=== PATIENT | male | born 1960 | race Caucasian/White ===

== ENCOUNTER 2019-06-10 08:10 | Inpatient (IN) ==
--- OUTSIDE RECORDS SUMMARY | 2019-06-10 08:13 | External Medical Summary | Continuity of Care Document ---
:1960 Author Name Erasmo Leos, Provider Address Unavailable Unavailable , Care Team Providers Name Role Phone Peterson Leos, Chung Aguilar Unavailable [email or web address] Active medical history not documented Allergies and Adverse Reactions Allergy history not documented Medications Medications not documented Procedures Procedures not documented Immunizations Immunizations not documented Plan of Treatment Planned Observations Planned Goals not documented Results No Known Results Results not documented Encounters Appointment; Chung Winkler M.D. 27-Aug-2009 9:20 Encounter Diagnosis: Problem not documented
[2019-06-10 08:57] LABS: Basophils # (auto) 0.03 K/uL (0-0.2); Basophils % (auto) 0.2 %; Eosinophils # (auto) 0.07 K/uL (0-0.5); Eosinophils % (auto) 0.5 %; Hematocrit (blood only) 52.9 % (42-52); Immature Granulocytes % (auto) 0.7 %; Lymphocytes # (auto) 1.59 K/uL (1.2-3.4); Lymphocytes % (auto) 10.5 %; Mean Corpuscular Hemoglobin 34.9 pg (25-34); Mean Corpuscular Hgb Conc 35.9 g/dL (32-36); Mean Corpuscular Volume 97.2 fL (80-100); Mean Platelet Volume 10.2 fL (7.4-10.4); Monocytes # (auto) 1.13 K/uL (0.11-0.59); Monocytes % (auto) 7.5 %; Neutrophils # (auto) 12.16 K/uL (1.4-6.5); Neutrophils % (auto) 80.6 %; Platelet Count 217 K/uL (130-400); RDW Coefficient of Variation 13.2 % (11.5-14.5); RDW Standard Deviation 47.3 fL (36.4-46.3); Red Blood Count 5.44 M/uL (4.7-6.1); White Blood Count 15.08 K/uL (4.8-10.8)
[2019-06-10] MEDS ORDERED: SODIUM CHLORIDE 0.9% 1000ML 1,000 ML IV SCH (09:00)
[2019-06-10 09:04] LABS: Albumin Level 3.5 gm/dl (3.4-5.0); BUN Creatinine Ratio 7.8 (10-20); Calcium 9.4 mg/dl (8.5-10.1); Creatinine Clr Calc Pharmacy 69.4 ml/min; Est GFR (Non-African American) 70.7; Potassium 4.4 mmol/L (3.5-5.1)
[2019-06-10 09:09] LABS: Albumin Globulin Ratio 0.7 (0.9-2); Bilirubin,Total 0.9 mg/dl (0.2-1); Globulin 4.7 gm/dl (2.5-4.0); Total Protein 8.2 gm/dl (6.4-8.2)
[2019-06-10 09:20] LABS: Appearance Urine Clear (Clear); Bacteria Urine Automated Negative (Negative); Blood Urine 2+ (Negative); Color Urine Orange; Glucose Urine UA Negative (Negative); Ketones Urine 1+ (Negative); Leukocyte Esterase Urine 1+ (Negative); Nitrite Urine Positive (Negative); Protein Urine 1+ (Negative); Specific Gravity Urine 1.027 (1.000-1.030); Urobilinogen Urine Negative (Negative)
--- NOTE | 2019-06-10 09:21 | Emergency Department Note ---
History of Present Illness General Chief complaint: Abdominal Pain Stated complaint: STOMACHPAIN & BACK PAIN Time Seen by Provider: 06/10/19 08:17 History of Present Illness Maximum Pain Intensity: 9 This 58-year-old male presents to the ER with chief complaint of left lower quadrant pain for the past 6 days. The patient states that it feels like he has to move his bowels but sometimes when he sits down to move his bowels there is no bowel movement sometimes there is only a small bowel movement. He states the pain is dull and achy and intermittently goes to a stabbing pain at a 9 out of 10. The patient admits to one episode of nausea and vomiting. Patient denies any fever. The patient tried MiraLAX without any relief of the pain. The patient denies any urinary symptoms of frequency, urgency, dysuria or hematuria. The patient does admit to urinary hesitancy but that has been going on for 1 year. The patient states that he had a colonoscopy approximately 10 years ago w hich was normal. He does have a history of kidney stones but this does not feel similar. Home Medications Home Medications Medication Instructions Recorded Confirmed Type No Known Home Medications 06/10/19 06/10/19 History Allergies Allergy/AdvReac Type Severity Reaction Status Date / Time No Known Allergies Allergy Unverified 06/10/19 08:59 Past Med/Surg History Medical History Kidney stones No significant past surgical history Surgical History H/O hernia repair ~2008 H/O vasectomy ~2003 Family History Father CHF (congestive heart failure) Social History Preferred Language: Icelandic Communication Ability: Effective Visual Impairment: No Limitations Beliefs That Will Affect Care: None Current Living Situation: Significant Other Other Information That Helps Us Care for You: No Feels Safe at Home: Yes Safety Concerns: Feels Safe At This Time Smoking Status: Current every day smoker Tobacco Type: cigarettes ; Cigarettes Per Day: 10 ; Hx Alcohol Use: Yes Alcohol type: beer Hx Substance Use: No Review of Systems A total of 10 systems reviewed and were otherwise negative Physical Exam Vital Signs Vital Signs - 24 hr 06/10/19 08:13 06/10/19 08:55 06/10/19 09:32 Temperature 36.4 C L Temperature Source Oral Sepsis Recent Fever Within 48 Hours No Sepsis New/Unexplained Change in Mental Status No Sepsis Action Taken by Nursing No Action Required Pulse Rate 100 H Pulse Rate [Left Finger] 87 Respiratory Rate 18 18 Respiratory Effort / Characteristics Non-Labored Spontaneous Non-Labored Spontaneous Respiratory Depth Normal Normal Respiratory Pattern Regular Blood Pressure 147/81 H Blood Pressure [Left Arm] 130/86 Blood Pressure Mean 103 Blood Pressure Mean [Left Arm] 100 Blood Pressure Position Sitting Pulse Oximetry 98 96 96 Oxygen Delivery Method Room Air Room Air Room Air 06/10/19 11:25 Temperature Temperature Source Sepsis Recent Fever Within 48 Hours Sepsis New/Unexplained Change in Mental Status Sepsis Action Taken by Nursing Pulse Rate Pulse Rate [Left Finger] 81 Respiratory Rate 19 Respiratory Effort / Characteristics Respiratory Depth Respiratory Pattern Blood Pressure Blood Pressure [Left Arm] 127/77 Blood Pressure Mean Blood Pressure Mean [Left Arm] 93 Blood Pressure Position Pulse Oximetry 97 Oxygen Delivery Method Room Air GENERAL: 58-year-old male appears in no acute distress. He is sitting comfortably on the ER stretcher. MENTAL Status: Alert and oriented x3. MOUTH: Mucosa is moist NECK: Supple, no lymphadenopathy noted. No carotid bruits noted. LUNGS: Clear auscultation without wheezes rales or rhonchi. CARDIAC: Regular rate and rhythm without murmur. Pulses is full and equal thro ughout. BACK: No CVA tenderness noted. ABDOMEN: Positive bowel sounds all 4 quadrants. Soft, patient has tenderness to palpation in the right lower quadrant .remainder of abdomen is nontender to palp ation without organomegaly or masses. EXTREMITIES: No cyanosis or edema noted. Course Administered Medications Ioversol (Optiray 320 100ml) 95 ml IV ONCE PRN PRN Reason: Interaction Checking Stop: 06/14/19 11:11 Last Admin: 06/10/19 11:13 Dose: 95 ml Documented by: [id number] Discontinued Medications Acetaminophen (Tylenol) 80 mg PO NOW STA Stop: 06/10/19 11:17 Last Admin: 06/10/19 11:25 Dose: Not Given Documented by: [id number] Sodium Chloride (Nss 1000ml) 1,000 mls @ 999 mls/hr IV .Q1H1M ELISSA Stop: 06/10/19 10:00 Last Infusion: 06/10/19 10:12 Dose: 0 mls/hr Documented by: [id number] Admin: 06/10/19 08:59 Dose: 999 mls/hr Documented by: [id number] Medical Decision Making Differential Diagnosis Acute appendicitis, diverticulitis, small bowel obstruction, kidney stone Medical Records Attestation: I reviewed the patient's medical records. Home Medications Current Medication List: was personally reviewed by me Laboratory Data Attestation: I reviewed the patient's lab results. Result diagrams: 06/10/19 08:25 06/10/19 08:25 Lab Results 06/10/19 06/10/19 06/10/19 Range/Units 08:25 08:25 09:00 WBC 15.08 H (4.8-10.8) K/uL RBC 5.44 (4.7-6.1) M/uL Hgb 19.0 H (14.0-18.0) g/dL Hct 52.9 H (42-52) % MCV 97.2 (80-100) fL MCH 34.9 H (25-34) pg MCHC 35.9 (32-36) g/dL RDW Std Deviation 47.3 H (36.4-46.3) fL RDW Coeff of Miky 13.2 (11.5-14.5) % Plt Count 217 (130-400) K/uL MPV 10.2 (7.4-10.4) fL Immature Gran % (Auto) 0.7 % Neut % (Auto) 80.6 % Lymph % (Auto) 10.5 % [place] % (Auto) 7.5 % Eos % (Auto) 0.5 % Baso % (Auto) 0.2 % Immature Gran # (Auto) 0.10 H (0.00-0.02) K/uL Neut # (Auto) 12.16 H (1.4-6.5) K/uL Lymph # (Auto) 1.59 (1.2-3.4) K/uL [place] # (Auto) 1.13 H (0.11-0.59) K/uL Eos # (Auto) 0.07 (0-0.5) K/uL Baso # (Auto) 0.03 (0-0.2) K/uL Sodium 140 (136-145) mmol/L Potassium 4.4 (3.5-5.1) mmol/L Chloride 106 (98-107) mmol/L Carbon Dioxide 29 (21-32) mmol/L Anion Gap 5.0 (3-11) BUN 9 (7-18) mg/dl Creatinine 1.15 (0.6-1.4) mg/dl Est Cr Clr Drug Dosing 69.4 ml/min Est GFR ( Amer) 82.0 Est GFR (Non-Af Amer) 70.7 BUN/Creatinine Ratio 7.8 L (10-20) Glucose 113 H (70-99) mg/dl Calcium 9.4 (8.5-10.1) mg/dl Total Bilirubin 0.9 (0.2-1) mg/dl AST 12 L (15-37) U/L ALT 18 (12-78) U/L Alkaline Phosphatase 74 (45-117) U/L Total Protein 8.2 (6.4-8.2) gm/dl Albumin 3.5 (3.4-5.0) gm/dl Globulin 4.7 H (2.5-4.0) gm/dl Albumin/Globulin Ratio 0.7 L (0.9-2) Lipase 101 (73-393) U/L Urine Color [place] Urine Appearance Clear (Clear) Urine pH 5.0 (4.5-7.5) Ur Specific [place] 1.027 (1.000-1.030) Urine Protein 1+ H (Negative) Urine Glucose (UA) Negative (Negative) Urine Ketones 1+ H (Negative) Urine Blood 2+ H (Negative) Urine Nitrite Positive A (Negative) Urine Bilirubin Negative (Negative) Urine Urobilinogen Negative (Negative) Ur Leukocyte Esterase 1+ H (Negative) Urine WBC (Auto) 5-10 H (0-5) /hpf Urine RBC (Auto) 10-30 H (0-4) /hpf U Hyaline Cast (Auto) 5-10 H (0-5) /lpf U Epithel Cells (Auto) 5-10 H (0-5) /lpf Urine Bacteria (Auto) Negative (Negative) Imaging Data Attestation: I personally reviewed and interpreted this imaging study as follows: My Impression: Acute diverticulitis Radiologist's Impression: CT abd pelvis oral and IV con CLINICAL HISTORY: Left lower quadrant pain COMPARISON STUDY: August 2007 TECHNIQUE: The patient was scanned following administration of dilute oral contrast, and in a dynamic helical fashion during intravenous administration of 95 cc of Optiray 320 A dose lowering technique was utilized adhering to the principles of ALARA. CT DOSE: 328.03 mGy.cm FINDINGS: Lower chest: There are mild basilar atelectatic changes Liver: There is suspected hepatic steatosis. No focal masses are visualized. Gallbladder: Unremarkable. Spleen: The spleen is mildly enlarged measuring 12.7 cm Pancreas: Unremarkable. Adrenal glands: Unremarkable. Kidneys: There is symmetric renal cortical enhancement. The kidneys are normal in size without hydronephrosis. Bowel: There are no transition zones indicate bowel obstruction. The appendix appears normal. There is a thick-walled sigmoid colon with infiltration of the pericolonic fat. The findings are consistent with acute diverticulitis. There is a suspected 2.5 cm intramural abscess. Peritoneum: There is no intraperitoneal free air or abdominal ascites. Vasculature: The abdominal aorta is normal in course and caliber. Adenopathy: None. Pelvic viscera: The prostate is enlarged Skeletal structures: There is bilateral L5 spondylolysis. There is a grade 1 spondylolisthesis of L5 and S1 IMPRESSION: 1. Acute sigmoid diverticulitis. 2.5 cm intramural abscess. 2. No evidence of bowel obstruction. No evidence of free air 3. Normal appendix 4. Mild splenomegaly 5. Hepatic steatosis Electronically signed by: Luis Alberto John M.D. 06/10/2019 11:30 AM Dictated: 06/10/19 1126 Transcribed: 06/10/19 1126 Blood Pressure Blood Pressure Findings: Elevated blood pressure Blood Pressure Disposition: elevated BP felt to be situational MDM Narrative The patient was evaluated. IV access was obtained. The patient was given 1 L normal saline wide open. The pain patient was offered pain medication but declined. CBC differential, renal profile, LFTs and lipase levels were ordered. Urinalysis was ordered. T of the abdomen and pelvis with IV and oral contrast was ordered and interpreted by the radiologist and myself as above with acute sigmoid diverticulitis with a 2.5 cm abscess. Labs are reviewed. White count was elevated at 15,000 otherwise labs are unremarkable. The patient's urinalysis revealed positive blood positive nitrates and positive leukocytes but negative bacteria. The patient's case was discussed with Dr. Kaye who agrees with treatment plan. Dr. Valerio was consulted. He stated that the patient could be admitted through medicine that most likely the abscess would resolve with antibiotic treatment. He also recommend that I contact Evert Ortega PA-C to let him know about the patient. The hospitalist was consulted for admission and Evert Ortega was informed of the patient being admitted. Impression & Plan Diverticulitis, Acute UTI Discharge Plan Visit Data Chief Complaint: Abdominal Pain Stated Complaint: STOMACHPAIN & BACK PAIN ED Provider: Denny Kaye ED Midlevel Provider: Beryl Layne Discharge Problem: Diverticulitis, Acute UTI Patient Disposition: Being Evaluated by Hospitalist Condition: Good Discharge Instructions Interventions: ED Discharge Assessment Last Done: 06/10/19 13:51
[2019-06-10 09:23] LABS: Bilirubin Urine Negative (Negative); Ictotest Urine Negative (Negative)
[2019-06-10] MEDS ORDERED: IOVERSOL 100ml IV PRN (11:12)
[2019-06-10] MEDS ORDERED: ACETAMINOPHEN 80 MG CHEWABLE TAB PO STA (11:16)
--- NOTE | 2019-06-10 11:31 | CT Scan Report ---
CT abd pelvis oral and IV con CLINICAL HISTORY: Left lower quadrant pain COMPARISON STUDY: August 2007 TECHNIQUE: The patient was scanned following administration of dilute oral contrast, and in a dynamic helical fashion during intravenous administration of 95 cc of Optiray 320 A dose lowering technique was utilized adhering to the principles of ALARA. CT DOSE: 328.03 mGy.cm FINDINGS: Lower chest: There are mild basilar atelectatic changes Liver: There is suspected hepatic steatosis. No focal masses are visualized. Gallbladder: Unremarkable. Spleen: The spleen is mildly enlarged measuring 12.7 cm Pancreas: Unremarkable. Adrenal glands: Unremarkable. Kidneys: There is symmetric renal cortical enhancement. The kidneys are normal in size without hydron ephrosis. Bowel: There are no transition zones indicate bowel obstruction. The appendix appears normal. There i s a thick-walled sigmoid colon with infiltration of the pericolonic fat. The findings are consistent with acute diverticulitis. There is a suspected 2.5 cm intramural abscess. Peritoneum: There is no intraperitoneal free air or abdominal ascites. Vasculature: The abdominal aorta is normal in course and caliber. Adenopathy: None. Pelvic viscera: The prostate is enlarged Skeletal structures: There is bilateral L5 spondylolysis. There is a grade 1 spondylolisthesis of L5 and S1 IMPRESSION: 1. Acute sigmoid diverticulitis. 2.5 cm intramural abscess. 2. No evidence of bowel obstruction. No evidence of free air 3. Normal appendix 4. Mild splenomegaly 5. Hepatic steatosis Electronically signed by: Luis Alberto John M.D. 06/10/2019 11:30 AM
--- NOTE | 2019-06-10 13:10 | Surgery Consultation ---
Date of Consultation June 10, 2019 Assessment & Plan (1) Diverticulitis: Diverticulitis, 2 cm abscess. No peritoneal findings. Being admitted by medicine for IV antibiotics & hydration, would keep NPO for today. Will continue to follow, likely repeat colonoscopy as an outpatient and consider elective resection depending on his progress. Supervising Physician Co-Signing Physician Notes concur with plan of Jayleen Lyons discussed and evaluated pt Manolo Valerio MD History of Present Illness History of Present Illness 58 y/o male with 5-6 days LLQ pain, pressure. Has been having some normal BMs but also some mucus and or liquid BMs. No history of diverticulitis. Had negative colonoscopy 8-10 years ago for some rectal bleeding. Has been eating regular diet. Allergies Allergy/AdvReac Type Severity Reaction Status Date / Time No Known Allergies Allergy Unverified 06/10/19 08:59 Home Medications Home Medications Medication Instructions Recorded Confirmed Type No Known Home Medications 06/10/19 06/10/19 History Patient History Medical History Kidney stones No significant past surgical history Surgical History H/O hernia repair ~2008 H/O vasectomy ~2003 Family History Father CHF (congestive heart failure) Social History Preferred Language: Nigerian Communication Ability: Effective Visual Impairment: No Limitations Feels Safe at Home: Yes Smoking Status: Current every day smoker Review of Systems Constitutional: no fever and no chills Gastrointestinal: + abdominal pain, + nausea and + vomiting; no blood in stools Physical Exam Constitutional: WD/WN, vitals as above no acute distress Respiratory: normal respiratory effort; no respiratory distress Cardiovascular: Rate/Rhythm: regular rate and regular rhythm Gastrointestinal (Abdomen): Inspection/Auscultation: abdomen not distended Percussion/Palpation: + abdomen tender (mild LLQ) and abdomen soft Results & Data Vital Signs (Past 12 Hours) Vital Signs Temp Pulse Pulse Resp BP BP Pulse Ox 06/10/19 11:25 81 19 127/77 97 06/10/19 09:32 87 18 130/86 96 06/10/19 08:55 96 06/10/19 08:13 36.4 C L 100 H 18 147/[address] abd pelvis oral and IV con CLINICAL HISTORY: Left lower quadrant pain COMPARISON STUDY: August 2007 TECHNIQUE: The patient was scanned following administration of dilute oral contrast, and in a dynamic helical fashion during intravenous administration of 95 cc of Optiray 320 A dose lowering technique was utilized adhering to the principles of ALARA. CT DOSE: 328.03 mGy.cm FINDINGS: Lower chest: There are mild basilar atelectatic changes Liver: There is suspected hepatic steatosis. No focal masses are visualized. Gallbladder: Unremarkable. Spleen: The spleen is mildly enlarged measuring 12.7 cm Pancreas: Unremarkable. Adrenal glands: Unremarkable. Kidneys: There is symmetric renal cortical enhancement. The kidneys are normal in size without hydronephrosis. Bowel: There are no transition zones indicate bowel obstruction. The appendix appears normal. There is a thick-walled sigmoid colon with infiltration of the pericolonic fat. The findings are consistent with acute diverticulitis. There is a suspected 2.5 cm intramural abscess. Peritoneum: There is no intraperitoneal free air or abdominal ascites. Vasculature: The abdominal aorta is normal in course and caliber. Adenopathy: None. Pelvic viscera: The prostate is enlarged Skeletal structures: There is bilateral L5 spondylolysis. There is a grade 1 spondylolisthesis of L5 and S1 IMPRESSION: 1. Acute sigmoid diverticulitis. 2.5 cm intramural abscess. 2. No evidence of bowel obstruction. No evidence of free air 3. Normal appendix 4. Mild splenomegaly 5. Hepatic steatosis Electronically signed by: Luis Alberto John M.D. 06/10/2019 11:30 AM Dictated: 06/10/19 1126 Transcribed: 06/10/19 1126 PG Care Time/CCT Total # of Minutes Spent Total Time Spent with Patient: Total time spent is greater than 50% in coordination of care (as documented) at patient's floor/unit and/or counseling patient:
--- NOTE | 2019-06-10 13:32 | History & Physical Report ---
Date of Service June 10, 2019 Assessment & Plan (1) Diverticulitis: CT a/p on 06/10 showed acute sigmoid diverticulitis. 2.5 cm intramural abscess. Mildly elevated WBC. - Seen by general surgery in the ED - No current surgical need. - Zosyn - NPO -> Advance diet as tolerated - IV fluids (2) Polycythemia: Hgb was 19 on admission. Possibly due to dehydration from his diverticulitis vs. smoking. - Monitor (3) Tobacco use: Current smoker, but wants to quit. - Nicotine patch (4) DVT prophylaxis: SCDs - Low DVT risk per admission calculator History of Present Illness Primary Care Provider: Rufina Garza MD 58-year-old male with no segment past medical history who presents with acute diverticulitis with diverticular abscess. Patient reports he was in his normal state of health up until last Monday, when he noted some left lower quadrant pain. The pain has no radiation and waxes and wanes. It usually gets worse with eating. He describes the pain as a "having to have a bowel movement" pain; however, he reports he can only pass a bowel movement from time to time and trying. He denies any blood or melena in his stool and denies any diarrhea. His last bowel movement was this morning and was a normal brown. He denies any fevers or chills. He had one episode of emesis after drinking some coffee when the pain is very severe, but nothing presently. He had a colonoscopy with Dr. Carrillo of the [facility] approximately 10 years ago and recalls that it was a normal colonoscopy. Allergies Allergy/AdvReac Type Severity Reaction Status Date / Time No Known Allergies Allergy Unverified 06/10/19 08:59 Home Medications Home Medications Medication Instructions Recorded Confirmed Type No Known Home Medications 06/10/19 06/10/19 History Past Med/Surg History Medical History Kidney stones No significant past surgical history Surgical History H/O hernia repair ~2008 H/O vasectomy ~2003 Family History Father CHF (congestive heart failure) Social History Preferred Language: Persian Communication Ability: Effective Visual Impairment: No Limitations Feels Safe at Home: Yes Smoking Status: Current every day smoker Review of Systems Review of Systems: All systems reviewed & are unremarkable except as noted in HPI & below Physical Exam Constitutional: WD/WN, vitals as above Eyes: EOM intact bilaterally; no conjunctival abnormality ENMT: external ear and nose normal, oropharynx normal Neck: trachea midline, no thyromegaly normal visual inspection Respiratory: normal respiratory effort, lungs clear to auscultation no respiratory distress Cardiovascular: RRR, no murmur, no edema Gastrointestinal (Abdomen): Inspection/Auscultation: abdomen normal to inspection; abdomen not distended Percussion/Palpation: + abdomen tender (LLQ) and abdomen soft; no guarding and abdomen not rigid Musculoskeletal: no cyanosis or clubbing, extremities motor strength 5/5 Skin: no rashes, warm and dry Neurologic: moves all extremities and awake Psychiatric: Orientation: alert, oriented to person and cooperative Results & Data Vital Signs (Past 12 Hours) Vital Signs Temp Pulse Pulse Resp BP BP Pulse Ox 06/10/19 11:25 81 19 127/77 97 06/10/19 09:32 87 18 130/86 96 06/10/19 08:55 96 06/10/19 08:13 36.4 C L 100 H 18 147/81 H 98 PG Care Time/CCT Total # of Minutes Spent Total Time Spent with Patient: Total time spent is greater than 50% in coordination of care (as documented) at patient's floor/unit and/or counseling patient:
[2019-06-10] MEDS ORDERED: PIPERACILL/TAZOBAC CONSULT ACTIVE PRN (14:16)
[2019-06-10] MEDS ORDERED: ACETAMINOPHEN 325 MG TAB PO PRN (14:16)
[2019-06-10] MEDS ORDERED: MoRPHine SULFATE 4 MG/ML 1 ML CARP\\VIAL IV PRN (14:16)
[2019-06-10] MEDS ORDERED: ONDANSETRON INJ 2 MG/ML 2 ML VIAL IV PRN (14:16)
[2019-06-10] MEDS ORDERED: PIPERACILLIN/TAZOBACTAM 3.375 GM in DEXTROSE 5% 100 ML IV ONE (14:30)
[2019-06-10] MEDS: NICOTINE 21 MG/24 HR TDSY TD SCH (15:22)
[2019-06-10] MEDS: SODIUM CHLORIDE 0.9% 1000ML 1,000 ML IV SCH (15:23)
[2019-06-10] MEDS: PIPERACILLIN/TAZOBACTAM 3.375 GM in DEXTROSE 5% 100 ML IV SCH (20:17)
[2019-06-11] MEDS: SODIUM CHLORIDE 0.9% 1000ML 1,000 ML IV SCH ×2 (03:14→15:22)
[2019-06-11] MEDS: PIPERACILLIN/TAZOBACTAM 3.375 GM in DEXTROSE 5% 100 ML IV SCH ×3 (04:02→20:25)
[2019-06-11 07:11] LABS: Hematocrit (blood only) 47.5 % (42-52); Hemoglobin 16.8 g/dL (14.0-18.0); Mean Corpuscular Hemoglobin 33.6 pg (25-34); Mean Corpuscular Hgb Conc 35.4 g/dL (32-36); Mean Platelet Volume 10.1 fL (7.4-10.4); Platelet Count 197 K/uL (130-400); RDW Coefficient of Variation 13.2 % (11.5-14.5); White Blood Count 13.28 K/uL (4.8-10.8)
[2019-06-11 07:46] LABS: BUN Creatinine Ratio 7.6 (10-20); Calcium 8.4 mg/dl (8.5-10.1); Est GFR (African American) 95.9; Est GFR (Non-African American) 82.8; Magnesium 2.2 mg/dl (1.8-2.4); Potassium 3.7 mmol/L (3.5-5.1)
[2019-06-11] MEDS: NICOTINE 21 MG/24 HR TDSY TD SCH (07:54)
--- NOTE | 2019-06-11 09:00 | Hospitalist Progress Note ---
Date of Service June 11, 2019 Assessment & Plan (1) Diverticulitis: - CT with acute sigmoid diverticulitis with 2.5 cm intramural abscess - Continue Zosyn therapy - Tolerating clear liquid diet and will advance to fulls and monitor tolerance - Pain management and IVF with NSS at 80 mL/hr - Gen Surg following - no surgical intervention needed at this time Present on Admission?: Yes (2) Polycythemia: - Hgb 19 on admission and currently 16.8 so likely related to dehydration - Routinely monitor labs Present on Admission?: Yes (3) Tobacco use: - Current smoker - interested in cessation - Continue nicotine patch Present on Admission?: Yes (4) DVT prophylaxis: SCDs - low DVT risk Disposition: Appreciate surgical input; await pain tolerance and diet advancement -- Patient is interested in establishing with with [facility] for a PCP - will discuss with FARHAT Locke Subjective Reports he is feeling okay today. Continues with LLQ abdominal pain but pain medication does help. Tolerating a clear liquid diet and will advance to fulls. Review of Systems Constitutional: no fever and no chills Respiratory: no cough and no dyspnea Cardiovascular: no chest pain and no palpitations Gastrointestinal: + abdominal pain and + diarrhea/loose stools; no nausea, no vomiting, no constipation and no blood in stools Genitourinary: no dysuria Integumentary: no rash Physical Exam Constitutional: WD/WN, vitals as above Eyes: + anicteric sclerae ENMT: Ears: no hearing impairment Neck: normal visual inspection and trachea midline Respiratory: normal respiratory effort, lungs clear to auscultation Cardiovascular: RRR, no murmur, no edema Gastrointestinal (Abdomen): Inspection/Auscultation: normal bowel sounds Percussion/Palpation: + abdomen tender (LLQ) and abdomen soft Musculoskeletal: Head/Neck/Chest: normocephalic, head atraumatic and neck supple Skin: no rashes, warm and dry Neurologic: moves all extremities Psychiatric: A+Ox3, euthymic affect Results & Data Vital Signs (Past 12 Hours) Vital Signs Temp Pulse Resp BP Pulse Ox 06/11/19 06:45 36.9 C 69 18 124/79 96 06/10/19 22:52 37.0 C 75 16 125/83 94 PG Care Time/CCT Total # of Minutes Spent Total Time Spent with Patient: Total time spent is greater than 50% in coordination of care (as documented) at patient's floor/unit and/or counseling patient:
--- NOTE | 2019-06-11 09:21 | Surgery Progress Note ---
Date of Service June 11, 2019 Assessment & Plan (1) Diverticulitis: WBC improved consider full liquids later today will recheck this afternoon Subjective still some pain, rectal pressure but not much BM, feels full after eating clears Physical Exam Gastrointestinal (Abdomen): Inspection/Auscultation: abdomen not distended Percussion/Palpation: + abdomen tender (less) and abdomen soft Results & Data Vital Signs (Past 12 Hours) Vital Signs Temp Pulse Resp BP Pulse Ox 06/11/19 06:45 36.9 C 69 18 124/79 96 06/10/19 22:52 37.0 C 75 16 125/83 94 PG Care Time/CCT Total # of Minutes Spent Total Time Spent with Patient: Total time spent is greater than 50% in coordination of care (as documented) at patient's floor/unit and/or counseling patient:
[2019-06-12] MEDS: SODIUM CHLORIDE 0.9% 1000ML 1,000 ML IV SCH (03:23)
[2019-06-12] MEDS: PIPERACILLIN/TAZOBACTAM 3.375 GM in DEXTROSE 5% 100 ML IV SCH ×3 (03:49→20:20)
[2019-06-12 07:57] LABS: Creatinine Clr Calc Pharmacy 77.5 ml/min; Est GFR (African American) 93.7; Est GFR (Non-African American) 80.8
[2019-06-12] MEDS: NICOTINE 21 MG/24 HR TDSY TD SCH (08:03)
--- NOTE | 2019-06-12 08:40 | Surgery Progress Note ---
Date of Service June 12, 2019 Assessment & Plan (1) Diverticulitis: diverticular abscess slowly improving continue IV abx another 24 hours low residue diet later today or tomorrow Supervising Physician Co-Signing Physician Notes concur with plan of Jayleen Lyons discussed and evaluated pt S Teodoro KRUEGER Subjective having thin liquid/soft BMs, tolerating full liquids Physical Exam Gastrointestinal (Abdomen): Inspection/Auscultation: abdomen not distended Percussion/Palpation: + abdomen tender (minimal) and abdomen soft Results & Data Vital Signs (Past 12 Hours) Vital Signs Temp Pulse Pulse Resp BP Pulse Ox 06/12/19 07:45 37.1 C 65 15 126/74 96 06/11/19 22:53 37.2 C 80 16 118/77 96 PG Care Time/CCT Total # of Minutes Spent Total Time Spent with Patient: Total time spent is greater than 50% in coordination of care (as documented) at patient's floor/unit and/or counseling patient:
--- NOTE | 2019-06-12 10:09 | Hospitalist Progress Note ---
Date of Service June 12, 2019 Assessment & Plan (1) Diverticulitis: - CT with acute sigmoid diverticulitis with 2.5 cm intramural abscess - Continue Zosyn therapy - Tolerating full liquid diet and will advance to low fiber for dinner - Pain management; will D/C further fluids - Gen Surg following - no surgical intervention needed at this time; recommending another 24 hrs of IV Abx (2) Polycythemia: - Hgb 19 on admission and currently 16.8 so likely related to dehydration - Routinely monitor labs (3) Tobacco use: - Current smoker - interested in cessation - Continue nicotine patch (4) DVT prophylaxis: SCDs/Ambulation - low DVT risk Disposition: Pending tolerance to advanced diet likely D/C home tomorrow -- Outpatient PCP appointment obtained Subjective Reports feeling well today. Continues to have some diarrhea but not bothersome. Pain is minimal and mostly present prior to moving bowels then resolves. Tolerating a full liquid diet and will advance to low fiber for dinner. Remains afebrile. No new complaints Review of Systems Constitutional: no fever and no chills Respiratory: no cough and no dyspnea Cardiovascular: no chest pain, no palpitations and no edema Gastrointestinal: + abdominal pain (minimal in LLQ prior to defecation and resolves with BM) and + diarrhea/loose stools; no nausea, no vomiting, no constipation and no blood in stools Genitourinary: no dysuria Physical Exam Constitutional: WD/WN, vitals as above Eyes: + anicteric sclerae ENMT: Ears: no hearing impairment Neck: normal visual inspection and trachea midline Respiratory: normal respiratory effort, lungs clear to auscultation Cardiovascular: RRR, no murmur, no edema Gastrointestinal (Abdomen): Inspection/Auscultation: normal bowel sounds Percussion/Palpation: abdomen soft; abdomen nontender Musculoskeletal: Head/Neck/Chest: normocephalic, head atraumatic and neck supple Skin: no rashes, warm and dry Neurologic: moves all extremities Psychiatric: A+Ox3, euthymic affect Results & Data Vital Signs (Past 12 Hours) Vital Signs Temp Pulse Pulse Resp BP Pulse Ox 06/12/19 07:45 37.1 C 65 15 126/74 96 06/11/19 22:53 37.2 C 80 16 118/77 96 PG Care Time/CCT Total # of Minutes Spent Total Time Spent with Patient: Total time spent is greater than 50% in coordination of care (as documented) at patient's floor/unit and/or counseling patient:
[2019-06-13] MEDS: PIPERACILLIN/TAZOBACTAM 3.375 GM in DEXTROSE 5% 100 ML IV SCH (04:30)
--- NOTE | 2019-06-13 06:59 | Surgery Progress Note ---
Date of Service June 13, 2019 Assessment & Plan (1) Diverticulitis: will recheck lab suspect wbc will continue to improve will check later today and may be able to be d/c home on low residue diet and po antibiotics (Flagyl and Cipro) for another week and f/u office based on clinical picture may need repeat ct scan once this episode cleared will get colonoscopy in [place] 6 weeks and plan for elective sigmoid resection diverticular abscess slowly improving continue IV abx another 24 hours low residue diet later today or tomorrow Subjective feels well had good night sleep continues to move bowels liquid tolerated reg diet yesterday Physical Exam Physical Exam: alert coherent in no distress abd completely benign minimal to no guarding Results & Data Vital Signs (Past 12 Hours) Vital Signs Temp Pulse Resp BP Pulse Ox 06/12/19 22:47 36.9 C 71 16 121/77 97 PG Care Time/CCT Total # of Minutes Spent Total Time Spent with Patient: Total time spent is greater than 50% in coordination of care (as documented) at patient's floor/unit and/or counseling patient:
[2019-06-13 07:15] LABS: Basophils # (auto) 0.04 K/uL (0-0.2); Basophils % (auto) 0.5 %; Eosinophils # (auto) 0.15 K/uL (0-0.5); Eosinophils % (auto) 1.9 %; Hematocrit (blood only) 47.4 % (42-52); Hemoglobin 16.8 g/dL (14.0-18.0); Immature Granulocytes # (auto) 0.05 K/uL (0.00-0.02); Immature Granulocytes % (auto) 0.6 %; Lymphocytes # (auto) 1.53 K/uL (1.2-3.4); Lymphocytes % (auto) 19.8 %; Mean Corpuscular Hemoglobin 33.4 pg (25-34); Mean Corpuscular Hgb Conc 35.4 g/dL (32-36); Mean Corpuscular Volume 94.2 fL (80-100); Mean Platelet Volume 9.8 fL (7.4-10.4); Monocytes # (auto) 0.83 K/uL (0.11-0.59); Monocytes % (auto) 10.8 %; Neutrophils # (auto) 5.12 K/uL (1.4-6.5); Neutrophils % (auto) 66.4 %; Platelet Count 221 K/uL (130-400); RDW Standard Deviation 45.1 fL (36.4-46.3); Red Blood Count 5.03 M/uL (4.7-6.1); White Blood Count 7.72 K/uL (4.8-10.8)
[2019-06-13] MEDS: NICOTINE 21 MG/24 HR TDSY TD SCH (08:20)
--- NOTE | 2019-06-13 18:26 | Discharge Summary ---
Date of Service June 13, 2019 Admission HPI Per Admitting Provider 58-year-old male with no segment past medical history who presents with acute diverticulitis with diverticular abscess. Patient reports he was in his normal state of health up until last Monday, when he noted some left lower quadrant pain. The pain has no radiation and waxes and wanes. It usually gets worse with eating. He describes the pain as a "having to have a bowel movement" pain; however, he reports he can only pass a bowel movement from time to time and trying. He denies any blood or melena in his stool and denies any diarrhea. His last bowel movement was this morning and was a normal brown. He denies any fevers or chills. He had one episode of emesis after drinking some coffee when the pain is very severe, but nothing presently. He had a colonoscopy with Dr. Carrillo of the [facility] approximately 10 years ago and recalls that it was a normal colonoscopy. Principal Diagnosis Acute Diverticulitis with Abscess Discharge Exam Constitutional WD/WN, vitals as above Eyes + anicteric sclerae ENMT Ears: no hearing impairment Neck normal visual inspection and trachea midline Respiratory normal respiratory effort, lungs clear to auscultation Cardiovascular RRR, no murmur, no edema Gastrointestinal (Abdomen) Inspection/Auscultation: normal bowel sounds Percussion/Palpation: abdomen soft; abdomen nontender Musculoskeletal Head/Neck/Chest: normocephalic, head atraumatic and neck supple Skin no rashes, warm and dry Neurologic moves all extremities Psychiatric A+Ox3, euthymic affect Discharge Data Allergies Allergy/AdvReac Type Severity Reaction Status Date / Time No Known Allergies Allergy Unverified 06/10/19 08:59 Consultations 06/10/19 13:05 ED Decision to Admit Stat 06/10/19 14:16 Consult General Surgery Routine Ordered Studies 06/10/19 08:49 CT abd pelvis oral and IV con Stat Hospital Course (1) Diverticulitis: - CT with acute sigmoid diverticulitis with 2.5 cm intramural abscess - Utilized Zosyn therapy and transitioned to Cipro 500 mg BID and Flagyl 500 mg TID to complete a 14 day course of Abx - Tolerating low fiber diet; remains pain free - Gen Surg following - no surgical intervention needed at this time - plan to F/U in approx. one week and pending clinical course may need to consider F/U CT scan; mention of possible colonoscopy in approx 6 weeks from recovery and consideration for elective sigmoid resection if warranted (2) Polycythemia: - Hgb 19 on admission and currently 16.8 so likely related to dehydration on admission (3) Tobacco use: - Current smoker - interested in cessation and continue encouragement (4) DVT prophylaxis: SCDs/Ambulation - low DVT risk Disposition: Reestablishment with PCP obtained during admission and F/U appointment made Total Time Total Time Spent Total Time Spent (In Minutes): Greater than 30 minutes Discharge Plan Discharge Items Patient Disposition: Home - Self-Care Reason For Visit: ACUTE DIVERTILUITIS Discharge Diagnosis: Acute Diverticulitis Condition: Good Discharge Goals: Decrease discomfort, Learn about illness and Prevent disease Activity: Resume your previous activity Non-emergency contact: Primary Care Provider Call non-emergency contact if: you have any medication questions, your symptoms worsen and you have a fever Follow-up/Referrals: Roberto Valerio MD [Surgeon] - (Please follow up in the general surgery clinic after you have undergone a colonoscopy with GI.) Rufina Garza MD [Primary Care Provider] - 06/17/19 12:45 pm (Please, follow up at Dr. Rufina Garza's office with her associate, Dr. Bello, on MondayJune 17 at 12:45 pm. *If you need to change this appointment, call their office at [phone]. Mr. Dias, When I called to make this appointment, the [employer] rep told me that they do accept [employer] insurance. I also called the member services number, listed on your insurance card, and spoke with a admissions representative (Cr) who also assured me that they are in network with Dr. Garza. If you find out that your insurance is not in network with [facility] and you need a new primary care provider, I would be glad to help you with this. You can reach me at the number listed below. Thank you, Elisabet Manjarrez RN [phone]) Diet: Low Fiber Addtl Provider Instructions: Diverticulitis: - This is a condition when little pouches in the large intestines get infected. Sometimes when diverticulitis occurs you can get a pocket of infection called an abscess. On your imaging it appears there is a small abscess where your infection is. A lot of times antibiotics can completely treat this but sometimes surgery is necessary. - You were seen by the surgeons here and will have a follow-up with them for monitoring. You were seen by Dr. Valerio from the surgical team. - Recommend to continue a low fiber diet for at least the next two weeks then can slowly increase your intake of fiber foods. Please refer to the handout provided on dietary options. - You may use Tylenol for mild pain or discomfort. If your pain significantly worsens it would be best to get this checked out to make sure nothing is worsening. - Your antibiotics will need to continue until June 23. You will take two different antibiotics. Start the doses this evening on 06/13 -- Ciprofloxacin 500 mg twice a day -- Flagyl 500 mg three times a day Prescriptions: New ciprofloxacin HCl 500 mg tablet 500 mg PO BID Qty: 21 RF: 0 metronidazole [Flagyl] 500 mg tablet 500 mg PO Q8H Qty: 31 RF: 0 No Action No Known Home Medications RF: 0 Stand-Alone Forms: Call Back Authorization, [facility]/Other Patient Handouts: Diet Low Residue, Diverticulosis Diverticulitis, Diverticulitis Dc Discharge Orders: Discharge Order (Routine); Ordered 06/13/19 Ordered By: Sophy Grimaldo Admission Data Admit Date/Time: 06/10/19 13:01 Attending Provider: Kike Jackson Admit Provider: Bipin Sams Primary Care Provider: Rufina Garza Other Providers: Roberto Valerio ; Bipin Sams Service: Surgical Services Other Interventions: Discharge Summary Assessment (RN) Last Done: 06/13/19 13:55 Pending Studies at Discharge: No DC Date/Time DO NOT enter until pt leaves facility: 06/13/19 15:04 Supervising Physician Co-Signing Physician Notes Attending note: patient seen and examined with Sophy Grimaldo PA-C. I agree with her discharge summary. I personally reviewed the labs and imaging findings. Patient feeling much better overall after several days of IV antibiotics. Minimal pain in the left lower quadrant. He is tolerating a diet and moving bowels. Plan to complete course of antibiotics at home. I discussed with him the importance of following up with PCP and then gastroenterology. Last colonoscopy was 10 years ago and he should have a follow up scope in 6-8 weeks. Discussed the typical course for diverticulitis, that if he has further bouts he may require sigmoidectomy. All questions answered. - Acute diverticulitis with small abscess responded well to Zosyn IV for several days, transition to Cipro/Flagyl to complete 14 day course followed by general surgery while here, no indication for surgery at this time recommend follow up with GI for colonoscopy in 6-8 weeks low residue diet for two weeks as inflammation resolves
== END 2019-06-13 15:04 | disposition home or self-care (01) | DRG 392 ==
LOC: ED 08:10 → SUATTDRO 13:01 → 3N 13:01